=== PATIENT | male | born 1970 | race Caucasian/White ===

== ENCOUNTER 2017-03-19 09:38 | Observation (INO) ==
[2017-03-19] MEDS ORDERED: DILTIAZEM 125 MG/25 ML VIAL IV ONE (09:46)
[2017-03-19] MEDS ORDERED: ASPIRIN 81 MG TAB.CHEW CHEWED ONE (09:47)
[2017-03-19] MEDS ORDERED: DILTIAZEM 25 MG/5 ML VIAL IV ONE ×2 (09:47→09:58)
[2017-03-19] MEDS ORDERED: 0.9 % SODIUM CHLORIDE 1,000 ML IV ONE ×2 (09:59→10:38)
[2017-03-19] MEDS ORDERED: DILTIAZEM 125 MG in 0.9 % SODIUM CHLORIDE 100 ML IV SCH ×2 (10:00→17:00)
[2017-03-19] MEDS ORDERED: DIGOXIN 500 MCG/2 ML AMPUL IV ONE ×2 (10:03→10:06)
[2017-03-19 10:23] LABS: Basophils # (Auto) 0.1 K/mcL (0.0-0.3); Basophils % (Auto) 0.6 % (0.0-2.0); Eosinophils # (Auto) 0.2 K/mcL (0.0-0.7); Granulocytes % (Auto) 66.8 % (38.0-78.0); Lymphocytes # (Auto) 2.3 K/mcL (1.5-4.8); Lymphocytes % (Auto) 21.7 % (15.5-49.0); Mean Cell Volume 87.9 fL (80.0-100.0); Mean Corpuscular HGB Conc 32.9 g/dL (31.0-36.0); Monocytes # (Auto) 0.9 K/mcL (0.1-0.9); Monocytes % (Auto) 8.9 % (1.0-12.0); Platelet Count 325 K/mcL (140-440); RBC 5.81 M/mcL (4.50-5.90); Red Cell Distribution Width 13.2 % (11.5-14.5)
--- NOTE | 2017-03-19 10:25 | XRay Report ---
HISTORY: Reason for Exam:Chest Pain FINDINGS: The heart is borderline enlarged. This is a chronic stable finding. No congestive heart failure or pleural effusion are present. The lungs are clear and well expanded. The mediastinum and corinna are normal. There has been little change since 11/14/16. IMPRESSION: Stable borderline cardiomegaly Interpreted and Authenticated by: Loy Romero 03/19/17
[2017-03-19] MEDS ORDERED: AMIODARONE 150 MG/3 ML VIAL IV ONE (10:35)
[2017-03-19] MEDS ORDERED: AMIODARONE HCL 450 MG in DEXTROSE 5% IN WATER (NON-PVC) 241 ML IV SCH (10:45)
[2017-03-19 10:51] LABS: Creatine Kinase MB 2.2 ng/ml (0-4.9); Myoglobin 26 ng/ml (28-72); proBNP 411.2 pg/ml (0-125)
--- NOTE | 2017-03-19 10:51 | Emergency Department Note ---
Chest Pain HPI - General Chief Complaint: Chest Pain Stated Complaint: Chest pain Time Seen by Provider: 03/19/17 09:46 - History of Present Illness HPI Narrative: 46-year-old male with a history of palpitations when he woke up this morning he woke up approximately 4:00 am . Describes some dull chest pain at that time as well. He comes in with a heart rate of 150s 160s. EKG reveals atrial fibrillation with RVR. he has had no history of atrial flutter been the past. He's been feeling well up to this point and was normal last night before he went to bed. Takes no medications . Patient denies any cough, is afebrile. Patient is alert and oriented, patient has no cardiac history. - Related Data Home Medications Medication Instructions Recorded Confirmed No Known Home Meds [No Known Home 10/27/16 10/27/16 Meds] Allergies Allergy/AdvReac Type Severity Reaction Status Date / Time No Known Drug Allergies Allergy Unverified 10/27/16 09:00 Review of Systems All systems ED: reviewed and negative except as stated. Constitutional: Denies: fever Eyes: Denies: eye pain ENT ED: Denies: ear pain Cardiovascular: Reports: chest pain, palpitations Respiratory: Denies: cough, dyspnea, wheezes Gastrointestinal: Denies: abdominal pain Chest Pain PMH Family history: Reports: no significant family history - Social History smoking status: Current every day smoker Alcohol use: Reports: Occasionally (3-4 drinks a day) Drug use: Reports: none Physical Exam - General Limitations: no limitations General appearance: alert - Head Head exam: atraumatic - Eye Eye exam: Present: normal appearance, PERRL - ENT ENT exam: normal exam, normal oropharynx - Neck Neck exam: Present: normal inspection, full ROM - Chest Chest inspection: Present: normal inspection - Respiratory Respiratory exam: Present: normal lung sounds bilaterally. Absent: respiratory distress - Cardiovascular Cardiovascular exam: Present: regular rate, tachycardia, irregular rhythm - Abdominal Exam Abdominal exam: Present: soft. Absent: distention, tenderness - Extremities Exam Extremities exam: Present: normal inspection, full ROM. Absent: tenderness - Back Exam Back exam: Present: normal inspection, full ROM. Absent: tenderness - Neurological Exam Neurological exam: Present: alert, oriented X3, CN II-XII intact - Psychiatric Psychiatric exam: Present: normal affect, normal mood. Absent: depressed - Skin Skin exam: Present: warm Course Vital Signs Pulse Rate 171 H 03/19/17 10:21 Respiratory Rate 20 03/19/17 10:21 Blood Pressure 102/86 03/19/17 10:21 Pulse Oximetry (%) 96 03/19/17 10:21 Pulse Rate 150 H 03/19/17 11:01 Respiratory Rate 19 03/19/17 11:01 Blood Pressure 111/88 03/19/17 11:01 Pulse Oximetry (%) 99 03/19/17 11:01 Chest Pain - MDM Narrative Medical decision making narrative: Patient heart rate is 180 and irregular. Patient given diltialazem no effect on her heart rate and also the EP went down to the 90s. He was then given digoxin 0.25 mg effects down to the 150s 140s. Eschen eventually put on amiodarone 150 along with a drip a milligram per minute.. Heart rates ranging from 119-130. Dr. Ochoa contacted and is here to evaluate H will be admitted to telemetry. Reactive work up is negative. D-dimer also normal. - Lab Data Result diagrams: 03/19/17 09:52 03/19/17 09:51 Lab Results 03/19/17 03/19/17 03/19/17 Range/Units 09:51 09:51 09:51 WBC (4.5-11.0) K/mcL RBC (4.50-5.90) M/mcL Hgb (13.5-16.5) g/dL Hct (41.0-55.0) % MCV (80.0-100.0) fL MCH (26.0-34.0) pg MCHC (31.0-36.0) g/dL RDW (11.5-14.5) % Plt Count (140-440) K/mcL MPV (7.4-10.4) fL Gran % (38.0-78.0) % Lymph % (Auto) (15.5-49.0) % Otero % (Auto) (1.0-12.0) % Eos % (Auto) (0.0-7.0) % Baso % (Auto) (0.0-2.0) % Gran # (1.8-8.0) K/mcL Lymph # (1.5-4.8) K/mcL Otero # (0.1-0.9) K/mcL Eos # (0.0-0.7) K/mcL Baso # (0.0-0.3) K/mcL PT 13.1 (11.9-14.5) sec INR 1.0 (0.9-1.1) D-Dimer (0.00-0.40) ug/ml Sodium 140 (133-145) mmol/L Potassium 4.4 (3.3-5.1) mmol/L Chloride 105 (96-108) mmol/L Carbon Dioxide 19 L (22-30) mmol/L Anion Gap 16.0 (8-16) BUN 17 (6-20) mg/dl Creatinine 0.9 (0.7-1.2) mg/dl GFR Calculation 101 Glucose 128 H (70-105) mg/dL Calcium 9.1 (8.6-10.4) mg/dl Total Bilirubin 0.3 (0.0-1.0) mg/dL AST 30 (0-37) U/l ALT 65 H (0-40) U/l Alkaline Phosphatase 92 (39-117) U/L Total Creatine Kinase 93 (24-195) IU/L CK-MB (CK-2) 2.2 (0-4.9) ng/ml Myoglobin 26 L (28-72) ng/ml Troponin T < 0.01 (0-0.03) ng/ml NT-Pro-B Natriuret Pep 411.2 H (0-125) pg/ml Total Protein 6.7 (5.9-8.4) gm/dL Albumin 4.1 (3.2-5.2) gm/dL Globulin 2.6 (2.2-3.7) gm/dL Albumin/Globulin Ratio 1.6 (1.0-2.3) Ethyl Alcohol (<0.010) gm/dl 03/19/17 03/19/17 03/19/17 Range/Units 09:51 09:52 09:52 WBC 10.6 (4.5-11.0) K/mcL RBC 5.81 (4.50-5.90) M/mcL Hgb 16.8 H (13.5-16.5) g/dL Hct 51.1 (41.0-55.0) % MCV 87.9 (80.0-100.0) fL MCH 29.0 (26.0-34.0) pg MCHC 32.9 (31.0-36.0) g/dL RDW 13.2 (11.5-14.5) % Plt Count 325 (140-440) K/mcL MPV 8.2 (7.4-10.4) fL Gran % 66.8 (38.0-78.0) % Lymph % (Auto) 21.7 (15.5-49.0) % Otero % (Auto) 8.9 (1.0-12.0) % Eos % (Auto) 2.0 (0.0-7.0) % Baso % (Auto) 0.6 (0.0-2.0) % Gran # 7.1 (1.8-8.0) K/mcL Lymph # 2.3 (1.5-4.8) K/mcL Otero # 0.9 (0.1-0.9) K/mcL Eos # 0.2 (0.0-0.7) K/mcL Baso # 0.1 (0.0-0.3) K/mcL PT (11.9-14.5) sec INR (0.9-1.1) D-Dimer < 0.27 (0.00-0.40) ug/ml Sodium (133-145) mmol/L Potassium (3.3-5.1) mmol/L Chloride (96-108) mmol/L Carbon Dioxide (22-30) mmol/L Anion Gap (8-16) BUN (6-20) mg/dl Creatinine (0.7-1.2) mg/dl GFR Calculation Glucose (70-105) mg/dL Calcium (8.6-10.4) mg/dl Total Bilirubin (0.0-1.0) mg/dL AST (0-37) U/l ALT (0-40) U/l Alkaline Phosphatase (39-117) U/L Total Creatine Kinase (24-195) IU/L CK-MB (CK-2) (0-4.9) ng/ml Myoglobin (28-72) ng/ml Troponin T (0-0.03) ng/ml NT-Pro-B Natriuret Pep (0-125) pg/ml Total Protein (5.9-8.4) gm/dL Albumin (3.2-5.2) gm/dL Globulin (2.2-3.7) gm/dL Albumin/Globulin Ratio (1.0-2.3) Ethyl Alcohol < 0.010 (<0.010) gm/dl Disposition Clinical Impression: Atrial fibrillation with RVR Disposition: Xfer As Inpt ([facility]) Condition: Fair Referrals: Bryce Valverde MD [Primary Care Provider] -
[2017-03-19 10:56] LABS: ALT/SGPT 65 U/l (0-40); Albumin 4.1 gm/dL (3.2-5.2); Albumin/Globulin Ratio 1.6 (1.0-2.3); Alkaline Phosphatase 92 U/L (39-117); Blood Urea Nitrogen 17 mg/dl (6-20); Creatine Kinase 93 IU/L (24-195)
[2017-03-19] MEDS ORDERED: ENOXAPARIN 80 MG/0.8 ML SYRINGE SQ ONE (11:02)
[2017-03-19] MEDS ORDERED: ONDANSETRON 4 MG/2 ML VIAL IV PRN ×2 (12:08→20:17)
[2017-03-19] MEDS ORDERED: MAGNESIUM SULFATE 2 GM/50 ML BAG IV PRN ×2 (12:08→20:17)
[2017-03-19] MEDS ORDERED: POTASSIUM CHLORIDE 20 MEQ PACKET PO PRN ×2 (12:08→20:17)
[2017-03-19] MEDS ORDERED: 0.9 % SODIUM CHLORIDE 1,000 ML IV SCH ×2 (12:08→20:17)
[2017-03-19] MEDS ORDERED: ACETAMINOPHEN 1,000 MG/100 ML BOTTLE IV PRN ×2 (12:08→20:17)
[2017-03-19] MEDS ORDERED: ACETAMINOPHEN 325 MG TABLET PO PRN ×2 (12:08→20:17)
[2017-03-19] MEDS: METOPROLOL TARTRATE 5 MG/5 ML VIAL IV SCH ×6 (12:33→21:58)
--- NOTE | 2017-03-19 12:37 | History and Physical Report ---
DATE OF ADMISSION: 03/19/2017 REASON FOR ADMISSION: Shortness of breath, chest palpitation. PRIMARY CARE PHYSICIAN: Chnao Valverde MD. HISTORY OF CHIEF COMPLAINT: The patient is a 46-year-old who comes to [facility] ER along with his after he woke up this morning with shortness of breath, along with chest palpitation, chest pressure. Initial workup was significant for heart rate around 170. The patient received diltiazem with inadequate response and subsequent hypotension. He was subsequently started on amiodarone load. Initial cardiac enzymes were negative. Hospitalist Service was consulted. At the time of examination, the patient is accompanied with his , Shania Rodríguez. She was able to provide most of the history. The patient is alert and comfortable. He denies any active chest discomfort except for a flutter sensation. He denies any prior similar events or gradual fatigue, dizziness, or lightheadedness. He was in his normal baseline state of health until last night when he woke up with the symptoms. He denies unilateral weakness, speech difficulty, headache, or photophobia. He denies excessive alcoholism except for two beers a night. He also smokes a pack a day but denies use of stimulants or amphetamines or excessive caffeine. He denies any family history of arrhythmias. REVIEW OF SYSTEMS: Ten-point system was performed and negative except the ones discussed above. PAST MEDICAL HISTORY: None significant. CURRENT MEDICATIONS: None. ALLERGIES: None. FAMILY HISTORY: None significant. SOCIAL HISTORY: The patient [place] in [place]. He works with machinery. He sees primary care physician, Chano Valverde MD. FULL CODE STATUS. He smokes a pack a day. Alcohol, has two beers a night. No substance abuse. to Shania Rodríguez. PHYSICAL EXAMINATION: GENERAL: The patient is alert and oriented, mild anxiety, but no distress. BMI 28. VITAL SIGNS: Blood pressure 100/86, respiratory rate 20, temperature 98.6, pulse 171, variable, irregular, sats 96% on room air. HEENT: Pupils symmetric. Oral cavity is dry. No ear or nose discharge. Head is normocephalic and atraumatic. NECK: No lymphadenopathy. CHEST: S1, S2, irregular rhythm, no murmur. Diminished breath sounds at bases. Late inspiratory crackle, right posterior chest. ABDOMEN: Soft and nontender. LOWER EXTREMITIES: No cyanosis or clubbing. No joint swelling. SKIN: No suspicious lesions. PSYCHIATRIC: Alert and cooperative. No anxiety or agitation. NEURO: Nonfocal. LABS AND IMAGING: White count 10.6, hemoglobin 16.8, INR 1. Sodium 140, potassium 4.4, creatinine 0.9, BUN 17. LFTs unremarkable. BNP 4112. Troponins negative. Alcohol negative. ASSESSMENT AND PLAN: A 46-year-old admitted with new onset atrial fibrillation with RVR. 1. Atrial fibrillation with RVR. The patient did not respond to digoxin or diltiazem and hence started on amiodarone load in ER. Given the exact time of onset this morning, the patient is within the window of 48 hours for cardioversion. The ER already started the patient on amiodarone and we will continue the same. We will check an echocardiogram to evaluate structure integrity, along with valvular architecture and chamber size. We will start patient on full-dose anticoagulation in anticipation for cardioversion if patient fails to spontaneously convert to sinus rhythm. We will subsequently consult Cardiology for electrical cardioversion. 2. Hypotension secondary to atrial fibrillation with RVR. Should improve with adequate rate control. PLAN FOR TODAY: 1. Admit in tele observation. 2. Full-dose anticoagulation. 3. Echocardiogram. 4. TSH. 5. Amiodarone. AA:pepito Job ID: [id number] Doc ID: [id number] Oleg Valverde MD MTDD
[2017-03-19 12:59] LABS: C-Reactive Protein < 0.3 mg/dl (0.0-0.8)
[2017-03-19] MEDS ORDERED: 0.9 % SODIUM CHLORIDE 10 ML SYRINGE IV SCH (14:00)
[2017-03-19 16:36] LABS: Amphetamine Screen,Urine NONE DETECTED (NONDETECTED); Benzodiazepines Screen,Urine NONE DETECTED (NONDETECTED); Cocaine Screen,Urine NONE DETECTED (NONDETECTED); Opiate Screen,Urine NONE DETECTED (NONDETECTED)
[2017-03-19] MEDS: DOCUSATE SODIUM 100 MG CAPSULE PO SCH (20:39)
[2017-03-19] MEDS ORDERED: SENNOSIDES/DOCUSATE SODIUM 1 TAB TABLET PO SCH ×2 (21:00)
[2017-03-19] MEDS ORDERED: DOCUSATE SODIUM 100 MG CAPSULE PO SCH (21:00)
[2017-03-19] MEDS ORDERED: traZODone HCL 50 MG TABLET PO PRN ×2 (21:00)
[2017-03-19] MEDS ORDERED: ENOXAPARIN 40 MG/0.4 ML SYRINGE SQ SCH ×2 (21:00)
[2017-03-19] MEDS: 0.9 % SODIUM CHLORIDE 10 ML SYRINGE IV SCH (21:59)
[2017-03-20] MEDS ORDERED: AMIODARONE HCL 450 MG in DEXTROSE 5% IN WATER (NON-PVC) 241 ML IV SCH ×2 (01:45)
[2017-03-20] MEDS: 0.9 % SODIUM CHLORIDE 10 ML SYRINGE IV SCH (04:52)
[2017-03-20] MEDS ORDERED: DILTIAZEM 125 MG in 0.9 % SODIUM CHLORIDE 100 ML IV SCH (05:00)
[2017-03-20 05:32] LABS: Mean Cell Volume 89.9 fL (80.0-100.0); Mean Corpuscular HGB Conc 32.2 g/dL (31.0-36.0); Mean Corpuscular Hemoglobin 28.9 pg (26.0-34.0); Platelet Count 274 K/mcL (140-440); RBC 5.28 M/mcL (4.50-5.90)
[2017-03-20 06:26] LABS: ALT/SGPT 98 U/l (0-40); Albumin 3.6 gm/dL (3.2-5.2); Albumin/Globulin Ratio 1.5 (1.0-2.3); Alkaline Phosphatase 78 U/L (39-117); Bilirubin,Direct < 0.2 mg/dL (0.0-0.3); Blood Urea Nitrogen 10 mg/dl (6-20); Gamma Glutamyl Transpeptidase 31 U/L (8-61); Uric Acid 4.8 mg/dL (2.5-8.0)
[2017-03-20 06:46] LABS: Eosinophils % (Manual) 1 % (0-7); Lymphocytes % 23 % (15-49); Monocytes % (Manual) 9 % (1-12); Platelet Estimate NORMAL (NORMAL); RBC Morphology NORMAL (NORMAL); Segmented Neutrophils % 67 % (38-78)
--- NOTE | 2017-03-20 07:02 | Echocardiogram Report ---
ECHOCARDIOGRAM: 2-D and M-mode echocardiography with cardiac Doppler and color flow imaging were performed with a [employer] Aplio MX. Indication is tachycardia. Overall size of the four cardiac chambers and aortic root appeared normal as did RV and LV wall thickness and systolic performance. Estimated ejection fraction is 60%. The aortic valve appeared trileaflet and normal. There was no evidence for aortic stenosis or aortic regurgitation by Doppler interrogation. The mitral and tricuspid valves likewise appeared unremarkable. Doppler interrogation of LV inflow disclosed a monophasic spectral dispersion pattern related to absent AV synchrony. There was no evidence for mitral regurgitation. The pulmonic valve was not visualized. Pulmonary artery acceleration time appeared shortened. There was no evidence for pulmonic stenosis or pulmonic regurgitation. There was no evidence for tricuspid regurgitation. No intracardiac shunting was appreciated. There was no evidence for pericardial effusion. The IVC was of normal diameter and showed normal respiratory variation. Atrial fibrillation with a rapid response was present. CONCLUSION: No abnormalities noted. (See accompanying M-mode and Doppler reports for quantitation.) ECHOCARDIOGRAPHY M-MODE CALCULATIONS: HT: 69'' WT: 185 BSA: 2.00 m2 NORMALS AORTA: AORTIC ROOT 3.1 2.0-3.7 cm LEFT ATRIUM 3.4 1.9-4.0 cm MITRAL VALVE: EXCURSION 1.9 1.9-2.7 cm EPSS 0.4 <0.5 cm LT VENTRICLE: LVID (ED) 4.5 3.5-5.7 cm LVID (ES) 3.0 SEPTAL THICKNESS 1.1 0.6-1.1 cm SEPTAL EXCURSION 0.4 0.3-0.8 cm LVPW THICKNESS 1.0 0.6-1.1 cm LVPW EXCURSION 0.8 0.9-1.4 cm MINOR AXIS FS 3.3 25%-40% RT VENTRICLE: RVID (ED) -- 0.9-2.6 cm(up to 3cm if LLD) QUALITATIVE DOPPLER FLOW STUDIES MITRAL VALVE -- AORTIC VALVE -- TRICUSPID VALVE -- PULMONIC VALVE -- QUANTITATIVE DOPPLER FLOW STUDIES SAMPLE SITES VELOCITIES PEAK PRESSURE VALVE AREA and/or VALVE WINDOW (PEAK,M/SEC) DROP (GRADIENT) PRESSURE HALF-TIME MV (Diastole) 0.9 -- -- MV (Systole) -- -- -- AO (Diastole) -- -- -- AO (Systole) -- -- -- TV (Systole) 1.4 -- -- PV (Systole) 0.8 -- -- PV (Diastole) -- ERICKSON:ria Job ID: [id number] Doc ID: [id number] Mulugeta Chen MD
[2017-03-20] MEDS ORDERED: DILTIAZEM 125 MG in 0.9 % SODIUM CHLORIDE 100 ML IV PRN (07:20)
[2017-03-20] MEDS: DOCUSATE SODIUM 100 MG CAPSULE PO SCH (08:55)
[2017-03-20] MEDS ORDERED: MULTIVIT,THER IRON,CA,FA & MIN 1 TABLET PO SCH ×2 (09:00)
--- NOTE | 2017-03-20 09:18 | Discharge Summary ---
Medical - DS: Prov Patient information: Note initiated : 03/20/17 at 9:15 am Service Date, if different from initiated Date: [] Patient: Watson Rodríguez 46 y/o M admitted on 03/19/17 for Chest pain. Chief Complaint: [] Date of admission: 03/19/17 11:50 Discharge date: 03/20/17 Primary care physician: [f_Reg Prim Care Provider] Medical - DS: Meds - Discharge Medications Active and Home Medications: Home Medications No Known Home Meds [No Known Home Meds] 10/27/16 [History Confirmed 03/19/17 Last Taken Unknown] Medical - DS: Hosp Hospital course: DISCHARGE DIAGNOSIS * A. fib with RVR-converted to sinus rhythm HOSPITAL COURSE Mr. Rodríguez is a 46 year old male admitted with new onset atrial fibrillation with RVR. Patient started on diltiazem drip and ER with inadequate response and developed hypotension. He was subsequently started on digoxin, and then on amiodarone due to inadequate rate control. Patient admitted to telemetry Echocardiogram revealed EF 60% with no abnormality. Patient converted to sinus rhythm around midnight. He did well overnight and this morning requesting discharge. Feels at baseline. Afebrile. No other telemetry eventss Discharge diagnosis: A. fib with RVR - Time Spent with Patient Total time spent providing and/or coordinating discharge services: Greater than 30 minutes Medical - DS: Exam - Constitutional Vitals: Vital Signs Temp Pulse Pulse Resp BP BP BP 03/20/17 08:00 98.0 F 64 18 03/20/17 06:50 18 132/83 03/20/17 06:48 03/20/17 05:02 123/89 03/20/17 05:01 03/20/17 05:00 64 14 123/89 03/20/17 04:00 97.6 F 56 L 14 109/83 109/83 03/20/17 03:59 03/20/17 03:00 50 L 16 101/81 03/20/17 01:54 46 L 16 98/77 03/20/17 01:00 51 L 16 99/69 03/20/17 00:00 98.0 F 103 H 16 98/62 03/19/17 23:00 113 H 16 86/65 03/19/17 22:00 118 H 16 105/83 03/19/17 21:01 92/74 03/19/17 21:00 121 H 18 92/74 03/19/17 20:02 103/75 03/19/17 20:01 03/19/17 20:00 97.7 F 116 H 16 103/75 03/19/17 19:32 107/74 03/19/17 19:31 03/19/17 19:16 124/94 03/19/17 19:14 03/19/17 19:02 16 100/68 03/19/17 19:01 03/19/17 19:00 20 124/94 03/19/17 18:47 127/97 03/19/17 18:46 03/19/17 18:32 123/104 03/19/17 18:31 03/19/17 18:17 120/96 03/19/17 18:01 127/94 03/19/17 17:31 108/65 03/19/17 17:30 03/19/17 17:16 112/71 03/19/17 17:15 03/19/17 17:01 129/96 03/19/17 17:00 03/19/17 16:01 105/81 03/19/17 16:00 03/19/17 15:41 98.4 F 20 106/74 03/19/17 15:14 123 H 16 106/74 03/19/17 15:01 106/74 03/19/17 15:00 03/19/17 14:01 64 111/88 03/19/17 14:00 77 133 H 16 111/88 03/19/17 13:46 60 111/101 03/19/17 13:45 126 H 03/19/17 13:31 63 103/81 03/19/17 13:13 87 105/75 03/19/17 13:12 52 L 03/19/17 13:08 78 102/78 03/19/17 13:07 51 L 16 105/75 03/19/17 13:00 28 L 112/89 03/19/17 12:59 102 H 03/19/17 12:08 98.5 F 20 97/80 Pulse Ox 03/20/17 08:00 99 03/20/17 06:50 99 03/20/17 06:48 99 03/20/17 05:02 99 03/20/17 05:01 99 03/20/17 05:00 98 03/20/17 04:00 99 03/20/17 03:59 100 03/20/17 03:00 97 03/20/17 01:54 97 03/20/17 01:00 99 03/20/17 00:00 96 03/19/17 23:00 96 03/19/17 22:00 100 03/19/17 21:01 94 03/19/17 21:00 100 03/19/17 20:02 96 03/19/17 20:01 96 03/19/17 20:00 96 03/19/17 19:32 96 03/19/17 19:31 96 03/19/17 19:16 99 03/19/17 19:14 97 03/19/17 19:02 99 03/19/17 19:01 99 03/19/17 19:00 96 03/19/17 18:47 99 03/19/17 18:46 99 03/19/17 18:32 98 03/19/17 18:31 99 03/19/17 18:17 03/19/17 18:01 03/19/17 17:31 95 03/19/17 17:30 96 03/19/17 17:16 95 03/19/17 17:15 98 03/19/17 17:01 97 03/19/17 17:00 97 03/19/17 16:01 97 03/19/17 16:00 99 03/19/17 15:41 97 03/19/17 15:14 99 03/19/17 15:01 97 03/19/17 15:00 97 03/19/17 14:01 99 03/19/17 14:00 99 03/19/17 13:46 97 03/19/17 13:45 97 03/19/17 13:31 99 03/19/17 13:13 99 03/19/17 13:12 98 03/19/17 13:08 96 03/19/17 13:07 97 03/19/17 13:00 98 03/19/17 12:59 98 03/19/17 12:08 98 Intake and Output 03/19/17 03/20/17 03/20/17 21:59 05:59 13:59 Intake Total 240 / 240 562 / 562 Output Total 1075 / 1075 900 / 900 Balance -835 / -835 -338 / -338 Intake: IV 202 / 202 Amiodarone HCl 450 mg In 163 / 163 Dextrose 5% in Water (Non -Pvc) 241 ml @ 1 MG/MIN 33.33 mls/hr IV Q15H BRONWYN Rx#:[id number] Cardizem 125 mg In Sodium 39 / 39 Chloride 0.9% 100 ml @ 5 MG/HR 5 mls/hr IV Q12H BRONWYN Rx#:[id number] Oral 240 / 240 360 / 360 Output: Void Amount 1075 / 1075 900 / 900 Other: Meal Lunch Percent of Meal Consumed 100% Feeding Ability Independent # Bowel Movements 1 Weight 193 lb 14.4 oz Medical - DS: Data Labs on day of discharge: Labs from last 24 hours 03/20/17 03/20/17 03/19/17 03:45 03:45 15:43 WBC 10.0 RBC 5.28 Hgb 15.3 Hct 47.5 MCV 89.9 MCH 28.9 MCHC 32.2 RDW 13.0 Plt Count 274 MPV 8.2 Total Counted 100 Seg Neutrophils % 67 Band Neutrophils % Not Reportable Lymphocytes % 23 Monocytes % (Manual) 9 Eosinophils % (Manual) 1 Platelet Estimate Normal RBC Morphology Normal Sodium 140 Potassium 4.5 Chloride 106 Carbon Dioxide 24 Anion Gap 10.0 BUN 10 Creatinine 0.8 GFR Calculation 106 Glucose 100 Uric Acid 4.8 Calcium 8.4 L Phosphorus 1.8 L Magnesium 2.0 Total Bilirubin 0.4 Direct Bilirubin < 0.2 GGT 31 AST 44 H ALT 98 H Alkaline Phosphatase 78 Lactate Dehydrogenase 176 Total Protein 6.0 Albumin 3.6 Globulin 2.4 Albumin/Globulin Ratio 1.5 Triglycerides 149 Urine Opiates Screen None detected Urine Methadone Screen None detected Ur Barbiturates Screen None detected Ur Phencyclidine Scrn None detected Ur Amphetamines Screen None detected U Benzodiazepines Scrn None detected Urine Cocaine Screen None detected U Marijuana (THC) Screen None detected Medical - DS: A/P - Patient/Caregiver Discharge Instructions Activity: as per physical therapy Diet: Regular Diet Additional Instructions: Return to ER if chest pain shortness of breath palpitation avoid alcohol/caffeine Follow-up PCP in 5 days - Follow up Plan Follow up with: Bryce Valverde MD [Primary Care Provider] - Disposition: Home, Self-Care Prognosis: Fair Rehab Potential: Fair I certify that the patient requires SNF services: No Overall status at discharge: patient is progressing back to baseline Medical - DS: Qual - VTE Deep Vein Thrombosis/Pulmonary Embolism Present on Admission: No
== END 2017-03-20 10:20 | disposition home or self-care (01) ==
LOC: ED 09:38 → INTOOBSV 11:50 → ICU 11:50
PROVIDERS: ADMIT Internal Medicine; ATTEND Internal Medicine